=== PATIENT | male | born 1975 | race Caucasian/White ===

== ENCOUNTER 2025-07-09 20:33 | Emergency (ER) | payer MEDICAID ==
[~2025-07-09] VITALS: Ht 172.7 cm; Wt 72.6 kg
[2025-07-09 21:26] VITALS: TEMP 98.4
[2025-07-09] MEDS ORDERED: SULF1TAB48 PO ×2 (21:47→22:56)
[2025-07-09] MEDS ORDERED: CEPH-570 PO ×2 (21:47→22:56)
[2025-07-09 21:51] LABS: PLATELET COUNT (AUTO) 152 K/uL (150-450); RED BLOOD CELL COUNT(AUTO) 4.21 MIL/uL (4.5-6.0); RED CELL DISTRIBUTION WIDTH 12.5 % (11.5-15.0); WHITE BLOOD COUNT (AUTO) 5.9 K/uL (4.3-11.0)
[2025-07-09 22:04] LABS: CREATININE 0.9 mg/dL (0.6-1.3); SODIUM SERUM 134.0 mmol/L (136-145); UREA NITROGEN, BLOOD 19.0 mg/dL (7-18)
[2025-07-09 22:08] LABS: CALCIUM, SERUM 9.2 mg/dL (8.5-10.1)
[2025-07-09 22:15] LABS: INR 0.92 (0.91-1.10)
[2025-07-09] MEDS ORDERED: CEPHALEXIN MONOHYDRATE 500 MG CAPSULE PO ONE (22:59)
[2025-07-09] MEDS ORDERED: SULFAMETH/TRIMETH 800/160 MG 1 UDTAB TABLET ONE (23:00)
[2025-07-09 23:03] VITALS: BP 126/70; O2SAT 97
[2025-07-09] MEDS: SULFAMETH/TRIMETH 800/160 MG 1 UDTAB TABLET PO ONE (23:03)
[2025-07-09] MEDS: CEPHALEXIN MONOHYDRATE 500 MG CAPSULE PO ONE (23:03)
== END 2025-07-09 23:04 | disposition home or self-care (01) ==
LOC: ER 20:41
DX: L03.312 Cellulitis of back [any part except buttock and flank] (principal); I10 Essential (primary) hypertension; E11.9 Type 2 diabetes mellitus without complications; Z79.4 Long term (current) use of insulin; Z86.2 Personal history of diseases of the blood and blood-forming organs and certain disorders involving the immune mechanism
CPT/HCPCS: 36415; 80048-TC; 85025-TC; 85730-TC